=== PATIENT | female | born 1955 | race Caucasian/White ===

== ENCOUNTER → 2020-11-08 | Day surgery (SDC) | payer MEDICARE, OTHER ==
[~2020-11-08] VITALS: Ht 167.6 cm; Wt 72.6 kg
[~2020-11-08] MED LIST: AMLODIPINE-BEN1 EAC1 PO; ANTIVERT25 MG PO; BENAZEPRIL HCL20 M1 PO; CENTRUM SILVER PO; COREG25 MG PO; GLUCOPHAGE500 MG PO; HCTZ25 MG PO; MYSOLINE50 M1 PO; PROTONIX40 MG PO; SYNTHROID100 MCG PO; XANAX0.5 MG PO
[2020-11-08 08:21] LABS: ALBUMIN 4.2 g/dL (3.4-5.0); BILIRUBIN - TOTAL 0.5 mg/dL (0.2-1.0); BUN/CREAT RATIO (CALC) 10.5 RATIO; CREATININE 0.57 mg/dL (0.51-0.95); GLOBULIN (CALCULATION) 3.1 g/dL; POTASSIUM 3.4 mmol/L (3.5-5.1); TOTAL PROTEIN 7.3 g/dL (6.4-8.2)
== END | disposition home or self-care (01) ==
LOC: FAS 06:58
PROVIDERS: Anesthesiology
DX: K64.0 First degree hemorrhoids (principal); K62.1 Rectal polyp; K63.5 Polyp of colon; K64.4 Residual hemorrhoidal skin tags; I10 Essential (primary) hypertension; D50.9 Iron deficiency anemia, unspecified; F17.210 Nicotine dependence, cigarettes, uncomplicated; M81.0 Age-related osteoporosis without current pathological fracture; E11.9 Type 2 diabetes mellitus without complications; Z79.899 Other long term (current) drug therapy; Z98.890 Other specified postprocedural states; Z86.010 Personal history of colon polyps; Z20.822 Contact with and (suspected) exposure to COVID-19; Z78.0 Asymptomatic menopausal state
CPT/HCPCS: 36415; 80053; 88305; J0690; J1644; J2250; J2704; J7120

== ENCOUNTER 2022-02-12 10:30 | Emergency (ER) | payer MEDICARE, OTHER ==
[2022-02-12 11:44] LABS: BASOPHIL 0.8 % (0-2); EOSINOPHIL 0.3 % (0-7); HCT 38.2 % (37.0-47.0); HGB 13.3 g/dl (12.5-16.0); LYMPHOCYTE 16.2 % (15-48); MCH 33.9 pg (25.0-31.0); MCHC 34.8 g/dL (32.0-36.0); MCV 97.4 fL (78.0-100.0); MONOCYTE 8.6 % (0-12); MPV 9.1 fL (6.0-9.5); NEUTROPHIL 73.5 % (41-80); NRBC 0; PLT 221 K/uL (150-400); RBC 3.92 M/uL (4.20-5.40); RDW 11.9 % (11.5-14.0); WBC 9.8 K/uL (4.0-10.5)
[2022-02-12 12:47] LABS: ALKALINE PHOSHATASE 82 U/L (46-116); ALT 17 U/L (14-59); AST 24 U/L (15-37); BILIRUBIN - TOTAL 0.4 mg/dL (0.2-1.0); BUN 10 mg/dL (7-18); BUN/CREAT RATIO (CALC) 22.2 RATIO; CHLORIDE 93 mmol/L (98-107); CO2 (BICARBONATE) 28 mmol/L (21-32); CREATININE 0.45 mg/dL (0.51-0.95); GLOBULIN (CALCULATION) 3.6 g/dL; GLUCOSE 138 mg/dL (74-106); LIPASE 86 U/L (73-393); TOTAL PROTEIN 7.6 g/dL (6.4-8.2)
[2022-02-12 13:11] LABS: AMPHETAMINES NEGATIVE (NEGATIVE); BARBITURATES NEGATIVE (NEGATIVE); ECSTASY (MDMA) NEGATIVE (NEGATIVE); MARIJUANA (THC) NEGATIVE (NEGATIVE); METHADONE NEGATIVE (NEGATIVE); OPIATES NEGATIVE (NEGATIVE); OXYCODONE NEGATIVE (NEGATIVE)
[2022-02-12 13:12] LABS: CLARITY CLEAR (CLEAR); COLOR YELLOW (YELLOW)
[2022-02-12 13:13] LABS: BILIRUBIN NEGATIVE (NEGATIVE); BLOOD NEGATIVE Ery/uL (NEGATIVE); GLUCOSE (U) TRACE mg/dL (NORMAL); LEUKOCYTES 1+ Leu/uL (NEGATIVE); NITRITE NEGATIVE (NEGATIVE); PROTEIN NEGATIVE (NEGATIVE); UROBILINOGEN 0.2 mg/dL (0.2-1.0)
[2022-02-12 13:15] LABS: BACTERIA TRACE; URINARY WBC RARE
[2022-02-12 13:50] LABS: CORONAVIRUS 2019 SARS-COV-2 NEGATIVE (NEGATIVE); INFLUENZA A NAA NEGATIVE (NEGATIVE)
[2022-02-12 13:52] LABS: INR 0.97 (0.9-1.2); PROTHROMBIN TIME 12.6 SECONDS (11.9-13.9); PTT 30.9 SECONDS (24.9-34.6)
== END 2022-02-12 16:28 | disposition home or self-care (01) ==
LOC: FER 10:30
PROVIDERS: Internal Medicine
DX: R42 Dizziness and giddiness (principal); R25.1 Tremor, unspecified; I10 Essential (primary) hypertension; E10.9 Type 1 diabetes mellitus without complications; E03.9 Hypothyroidism, unspecified; Z79.84 Long term (current) use of oral hypoglycemic drugs; Z79.899 Other long term (current) drug therapy; Z79.890 Hormone replacement therapy; Z20.822 Contact with and (suspected) exposure to COVID-19
CPT/HCPCS: 36415; 70450; 80053; 80305; 81001; 83690; 84145; 84484; 85025; 85610; 85730; 87088; 93005; G0480; J2060; U0002